=== PATIENT | male | born 1985 | race Caucasian/White ===

== ENCOUNTER 2018-07-03 17:50 | Emergency (ER) | payer BC, OTHER ==
[2018-07-03] MEDS: ACETAMINOPHEN 325 MG TAB PO (22:16)
[2018-07-03] MEDS: OSELTAMIVIR 75 MG CAP PO (22:16)
[2018-07-03] MEDS: SOD CHLORIDE 0.9% 1,000 ML IV (22:18)
[2018-07-03] MEDS: KETOROLAC 30 MG INJ IV (22:18)
[2018-07-03] MEDS: ONDANSETRON (ODT) 4 MG TAB ODT (22:18)
[2018-07-03 22:22] LABS: ADD MAN DIFF? NO
[2018-07-03 22:24] LABS: ABNORMAL IP MESSAGE 1; BASOPHILS % 0.2 % (0.0-2.0); HEMATOCRIT 44.4 % (42.0-52.0); HEMOGLOBIN 15.1 g/dl (14.0-18.0); LYMPHOCYTES # 0.6 10^3/ul (0.8-2.9); LYMPHOCYTES % 8.4 % (15.0-51.0); MEAN CORPUSCULAR HEMOGLOBIN 32.1 pg (29.0-33.0); MEAN CORPUSCULAR VOLUME 94.5 fl (82.0-101.0); MEAN PLATELET VOLUME 10.8 fl (7.4-10.4); MONOCYTE # 0.8 10^3/ul (0.3-0.9); MONOCYTES % 11.9 % (0.0-11.0); NEUTROPHIL # 5.2 10^3/ul (1.6-7.5); NEUTROPHILS % 79.2 % (39.0-77.0); PLATELET COUNT 236 10^3/UL (140-415); POSITIVE DIFF @See below; RED CELL DISTRIBUTION WIDTH 12.3 % (11.5-14.5)
[2018-07-03 22:24] LABS: WHITE BLOOD COUNT 6.6 10^3/ul (4.8-10.8)
[2018-07-03 22:44] LABS: ALANINE AMINOTRANSFERASE 18 IU/L (13-69); ALBUMIN 5.4 g/dl (3.3-4.9); ALBUMIN/GLOBULIN RATIO 1.25; ALKALINE PHOSPHATASE 121 IU/L (42-121); ANION GAP 19 (5-13); ASPARTATE AMINO TRANSFERASE 33 IU/L (15-46); BILIRUBIN,INDIRECT 0.1 mg/dl (0-1.1); BILIRUBIN,TOTAL 0.1 mg/dl (0.2-1.3); BLOOD UREA NITROGEN 11 mg/dl (7-20); CARBON DIOXIDE 26 mmol/L (21-31); CHLORIDE 97 mmol/L (97-110); CREATININE 0.86 mg/dl (0.61-1.24); Estimated GFR > 60 mL/min (>60); GLUCOSE 105 mg/dl (70-220); LIPASE 29 U/L (23-300); POTASSIUM 4.5 mmol/L (3.5-5.1); SODIUM 142 mmol/L (135-144); TOTAL PROTEIN 9.7 g/dl (6.1-8.1)
== END 2018-07-04 00:20 | disposition home or self-care (01) ==
LOC: FTE 07-04 00:20
DX: J10.1 Influenza due to other identified influenza virus with other respiratory manifestations (principal)
CPT/HCPCS: 80053; 83690; 85025; 87400; 96374; 99284-25